=== PATIENT | female | born 1975 | race Native Hawaiian/Other Pacific Islander ===

== ENCOUNTER → 2020-10-17 | Outpatient (CLI) | payer OTHER ==
[2020-10-17 12:48] LABS: Basophils % (A) 1 %; Eosinophils # (A) 0.2 k/uL (0-0.7); Eosinophils % (A) 4 %; HCT 42.6 % (34.0-46.0); Lymphocytes # (A) 1.5 k/uL (1.0-4.8); Lymphocytes % (A) 29 %; MCV 97.2 fL (80.0-100.0); Mean Platelet Volume 6.3; Monocytes # (A) 0.4 k/uL (0-1.0); Monocytes % (A) 7 %; Neutrophils # (A) 3.1 k/uL (1.3-7.7); Neutrophils % (A) 58 %; Platelet Count 363 k/uL (150-450); RBC 4.38 m/uL (3.80-5.40); RDW 13.3 % (11.5-15.5); WBC 5.4 k/uL (3.8-10.6)
[2020-10-17 13:01] LABS: INR 0.9 (<1.2); Prothrombin Time 9.9 sec (9.0-12.0)
[2020-10-17 13:10] LABS: Potassium 4.6 mmol/L (3.5-5.1)
== END | disposition home or self-care (01) ==
LOC: LABPAT 11:53
PROVIDERS: ATTEND Orthopaedic Surgery
DX: Z01.812 Encounter for preprocedural laboratory examination (principal); M16.12 Unilateral primary osteoarthritis, left hip; M87.052 Idiopathic aseptic necrosis of left femur
CPT/HCPCS: 80051; 85025; 85610; 87070; 93005

== ENCOUNTER 2020-10-21 05:48 | Day surgery (SDC) | payer OTHER ==
--- NOTE | 2020-10-20 11:34 | HP ---
HISTORY AND PHYSICAL DATE OF SURGERY: 10/21/2020 HISTORY OF PRESENT ILLNESS: Lisa Kinney is a 45-year-old patient seen with symptomatic left hip osteoarthritis/avascular necrosis. We discussed options for treatment. She elected to proceed with left total hip arthroplasty. Consent was obtained. PAST MEDICAL HISTORY: Anxiety. PAST SURGICAL HISTORY: Noncontributory. MEDICATIONS: Lexapro, loratadine. ALLERGIES: SULFA. SOCIAL HISTORY: She smokes 1 pack of cigarettes daily. PHYSICAL EXAMINATION: Evaluation of the left hip, she has very limited range of motion of the left hip with severe pain. There is diffuse tenderness about the hip girdle with positive hip impingement sign. Straight leg raise negative. Her distal neurovascular exam is intact. RADIOGRAPHS: Left hip radiographs reveal severe osteoarthritis as well as avascular necrosis of the femoral head with complete collapse of the femoral head. IMPRESSION: Left hip osteoarthritis/avascular necrosis. PLAN: Direct anterior left total hip arthroplasty. MMODL / IJN: [id number] /
[~2020-10-21 05:48] MED LIST: ACETAMINOPHEN TAB 500 MG TAB PO PRN; DEXAMETHASONE SOD PHOSPHATE 4 MG/ML 1 ML VIAL IV ONE; LACTATED RINGERS 1,000 ML IV SCH; LIDOCAINE 1% (10MG/ML) FOR IV START INTRADERMA PRN; MELOXICAM 7.5 MG TAB PO PRN; MIDAZOLAM 2 MG/2 ML VIAL IV PRN; ONDANSETRON 4 MG/2 ML VIAL IVP ONE; ROPIVACAINE/EPI/CLONIDINE/KET 50 ML SYRINGE MISCELLANE PRN; TRANEXAMIC ACID 1,000 MG in SODIUM CHLORIDE 0.9% 100 ML IVPB PRN
[2020-10-21] MEDS ORDERED: ACETAMINOPHEN TAB 500 MG TAB ONE (06:02)
[2020-10-21] MEDS ORDERED: ONDANSETRON 4 MG/2 ML VIAL ONE (06:03)
[2020-10-21] MEDS ORDERED: LACTATED RINGERS 1,000 ML IV ONE ×4 (06:27→10:38)
[2020-10-21] MEDS ORDERED: HYDROmorphone (PF) 1 MG/ML ONE (07:27)
[2020-10-21] MEDS ORDERED: SILVER sulfADIAZINE Cream 400 GM 1 APPLIC APPLIC TOPICAL ONE (07:27)
[2020-10-21] MEDS ORDERED: LIDOCAINE 1% INJ 10MG/ML (20 ML MDV) ONE (07:27)
[2020-10-21] MEDS ORDERED: MIDAZOLAM 2 MG/2 ML VIAL ONE (07:27)
[2020-10-21] MEDS ORDERED: fentaNYL (PF) 50 MCG/ML 2 ML AMP ONE (07:27)
[2020-10-21] MEDS ORDERED: SODIUM CHLORIDE 0.9% 100 ML BAG ONE (07:27)
[2020-10-21] MEDS ORDERED: PROPOFOL 10 MG/ML 20 ML VIAL IV ONE (07:27)
[2020-10-21] MEDS ORDERED: PHENYLEPHRINE-0.9% NACL SYG 1,000 MCG/10 ML SYRINGE ONE (07:27)
[2020-10-21] MEDS ORDERED: TRANEXAMIC ACID 1,000 MG/10 ML VIAL ONE (07:27)
[2020-10-21] MEDS ORDERED: ceFAZolin 3,000 MG in SODIUM CHLORIDE 0.9% IRRIGATIO 3,000 ML IRRIGATION ONE (08:07)
[2020-10-21] MEDS ORDERED: NALOXONE 0.4 MG/ML 1 ML VIAL IV PRN (09:20)
[2020-10-21] MEDS ORDERED: HYDROmorphone 0.2 MG/1 ML SYRINGE IVP PRN (09:20)
[2020-10-21] MEDS ORDERED: ONDANSETRON 4 MG/2 ML VIAL IVP PRN (09:20)
[2020-10-21] MEDS ORDERED: HYDROmorphone 1 MG/ML 1 ML SYRINGE IVP PRN (09:20)
[2020-10-21] MEDS ORDERED: HYDROmorphone 0.5 MG/0.5 ML SYRINGE IVP PRN (09:20)
[2020-10-21] MEDS ORDERED: HYDROcodone/APAP 5-325MG 1 EACH TAB PO PRN ×2 (09:20)
--- NOTE | 2020-10-21 09:20 | P.OP ---
Date of Procedure: 10/21/20 Preoperative Diagnosis: Left hip osteoarthritis Postoperative Diagnosis: Left hip osteoarthritis Procedure(s) Performed: Direct anterior left total hip arthroplasty Implants: 1. Depuy Corail KA 125 with collar size 9 press-fit femoral stem 2. Depuy pinnacle 48 mm press-fit acetabular shell 3. Depuy pinnacle neutral polyethylene acetabular liner 32 mm ID 48 mm OD 4. Biolox delta ceramic femoral head +5 32 mm Anesthesia: YONIA, local Surgeon: Bhavik Long B2B Sales Representative #1: Garry Shell Estimated Blood Loss (ml): 250 Pathology: other (Femoral head) Condition: stable Disposition: PACU Indications for Procedure: 45-year-old patient seen with symptomatic left hip avascular necrosis/osteoarthritis. After treatment options were discussed, she elected to proceed with direct anterior left total hip arthroplasty. Operative Findings: See description of procedure Description of Procedure: The patient was taken to the operative suite. Patient underwent a general a nesthetic by the department of anesthesia. Patient was then transferred to the [place] table. Patient was given preoperative IV antibiotics and TXA. Both lower extremities were placed in standard leg spars. The hip was then prepped and draped in the normal sterile orthopedic fashion. A standard anterior incision was made beginning 3 cm lateral and 1 cm distal to the ASIS extending 10 cm. Dissection was then carried down through the subcutaneous soft tissues down to the fascia overlying the tensor fascia ladonna. An incision was now made through the fascia. Careful dissection was taken down exposing the tensor fascia ladonna muscle. A Cobra retractor was now placed along the medial femoral neck and a second one along the lateral femoral neck. The venous circumflex vessels were now identified, cauterized and clipped. We identified the anterior hip capsule. An incision was made through the hip capsule along the lateral border. I performed a partial anterior capsulectomy. Retractors were now placed around the femoral neck itself. A femoral neck cut was now made with a sagittal saw. It was completed with an osteotome at the lateral neck area. The femoral head was now removed without difficulty. The extremity was now rotated to 45 of external rotation. It was locked in position. Residual labrum was now debrided out. Serial reaming was performed of the acetabulum while Francis ABREU assisted holding an anterior retractor for exposure. Once we reached the appropriate size and a trial was position and fit nicely. The appropriate size was now chosen opened and made available. It was introduced into the acetabulum without difficulty. The C-arm/fluoroscopy was now brought into the operative field. We made sure we had a true AP pelvic view. We now under direct C- arm/fluoroscopy introduced into the acetabular component with appropriate version and inclination. I held the cup in appropriate position well Francis ABREU used a mallet to seat the acetabular component. I noted the component now to be well seated and stable. Acetabular cup introduce her was removed. The C-arm was pulled back. An appropriate liner was introduced and clicked into position. It was felt to be stable. At this point retractors were removed. The extremity was now placed into 120 external rotation with no traction. The leg was now dropped to the ground and adducted. Appropriate retractors were now positioned along the proximal femur. We also placed our femoral look into position. Additional capsular releasing was performed to gain access to the proximal femur. We now used a box osteotome. A canal finder was now utilized. Serial broaching was now performed with the assistance of Francis ABREU tapping the broaches down with a mallet while held the broach in appropriate rotation and position. This was done until we reached the appropriate size with good overall rotational stability. Appropriate calcar planing was performed. A trial head/neck was placed into position. The hip was now reduced. The C- arm/fluoroscopy was brought back into the operative field. I obtained an AP pelvis view to ascertain leg length positioning and it seemed reasonable. The trial components appeared adequately positioned. The C-arm/fluoroscopy was pulled back. Retractors were repositioned and the hip was dislocated. The leg was again taken down to the ground and adducted. Appropriate retractors were repositioned as well as the femoral hook. All trial components were removed. The femoral implant was opened along with the femoral head. The femoral implant was introduced on the appropriate handle into our pre-broached area. I held the component position well Francis ABREU used a mallet to seat the femoral component. The femoral component was now noted to be well seated and stable.. The femoral head was introduced with good positioning and fixation noted. Retractors were now removed. The hip was now reduced. There appeared be good positioning of the hip confirmed on intraoperative fluoroscopy. Spot films were obtained to document this. A second gram of TXA was given. The deep and superficial soft tissues were infiltrated with local analgesic. Bipolar cautery had been utilized intermittently through the procedure for hemostasis. The wound was irrigated copiously with pulse lavage mechanical irrigation. The fascia was repaired with Vicryl suture. The subcutaneous soft tissues were repaired in layers with Vicryl suture. The skin was approximated with pernio/Dermabond. Sterile dressings were applied. Patient was then awakened, transferred to a bed and taken to recovery in stable condition. Francis ABREU assisted with the complex procedure.
[2020-10-21 09:58] VITALS: TEMP 97.3
[2020-10-21 10:00] VITALS: RESP 16
[2020-10-21] MEDS ORDERED: KETOROLAC 15 MG/ML 1 ML VIAL IVP ONE (10:15)
[2020-10-21] MEDS: HYDROmorphone 0.5 MG/0.5 ML SYRINGE IVP PRN ×2 (10:25→10:40)
--- NOTE | 2020-10-21 10:27 | XR ---
EXAMINATION TYPE: XR Hip Limited LT, FL guidance operating room DATE OF EXAM: 10/21/2020 COMPARISON: NONE HISTORY: 45-year-old female left anterior hip arthroplasty FINDINGS: 1 intraoperative fluoroscopic images demonstrating left hip total arthroplasty placement. FLUOROSCOPY Fluoroscopy time of 14 seconds was used during left hip total arthroplasty. 1 image/s document/s the procedure. IMPRESSION: Intraoperative fluoroscopy as above.
[2020-10-21] MEDS ORDERED: HYDROcodone/APAP 7.5-325MG 1 EACH TAB ONE (12:47)
[2020-10-21] MEDS ORDERED: HYDROcodone/APAP 7.5-325MG 1 EACH TAB PO ONE (12:49)
[2020-10-21 13:13] VITALS: BP 94/54; PULSE 85
== END 2020-10-21 14:24 | disposition home or self-care (01) ==
LOC: OR 05:48
PROVIDERS: ATTEND Orthopaedic Surgery
DX: M16.12 Unilateral primary osteoarthritis, left hip (principal); M87.852 Other osteonecrosis, left femur; F41.9 Anxiety disorder, unspecified; F17.210 Nicotine dependence, cigarettes, uncomplicated; J30.2 Other seasonal allergic rhinitis; R94.31 Abnormal electrocardiogram [ECG] [EKG]; Z88.2 Allergy status to sulfonamides; Z79.899 Other long term (current) drug therapy
CPT/HCPCS: 27130; 97110; 97161; 81025; 88305; 88311; 73501; C1776; J2250; J1100; J0690 ×2; J2405; J2001; J3010; J1170 ×2; J1885; J2370; J2704; 86850; 86900; 86901

== ENCOUNTER 2020-10-27 19:06 | Inpatient (IN) | payer OTHER ==
[2020-10-27] MEDS ORDERED: NALOXONE 0.4 MG/ML 1 ML VIAL IV PRN (19:14)
[2020-10-27] MEDS ORDERED: ONDANSETRON 4 MG/2 ML VIAL IVP PRN (19:14)
--- NOTE | 2020-10-27 19:17 | ED ---
Lower Extremity Injury HPI - General Chief Complaint: Extremity Injury, Lower Stated Complaint: Dislocated Hip Source: EMS Mode of arrival: EMS Limitations: no limitations - History of Present Illness Initial Comments: Lisa is a pleasant 45-year-old female who underwent left hip arthroplasty with Dr. reid Shipman on Wednesday of this week. Patient states that today she bent over to something up off the ground and her hip dislocated. She was taken to her local hospital which was [facility]. She was sedated with propofol and there was an attempt to reduce her hip which was unsuccessful in the emergency department. They contacted patient's surgeon who recommended transfer to this hospital with the plan for operative reduction. Patient reports her pain has been managed with Toradol. Her only concern is discomfort with using the bedpan. - Related Data Home Medications Medication Instructions Recorded Confirmed Ascorbic Acid [Vitamin C] 1 tab PO DAILY 10/18/20 10/18/20 Calcium Carbonate [Calcium] 1 tab PO DAILY 10/18/20 10/18/20 Cholecalciferol [Vitamin D3 (25 1 tab PO DAILY 10/18/20 10/18/20 Mcg = 1000 Iu)] Escitalopram Oxalate [Lexapro] 10 mg PO QAM 10/18/20 10/18/20 RX: Loratadine 10 mg PO QAM 10/18/20 10/18/20 lamoTRIgine [LaMICtal] 100 mg PO QAM 10/18/20 10/18/20 Previous Rx's Medication Instructions Recorded Docusate [Colace] 100 mg PO DAILY #30 capsule 10/21/20 HYDROcodone/APAP 7.5-325MG [[place] 1 each PO Q6HR PRN #28 tab 10/21/20 7.5] RX: Aspirin [Adult Low Dose 81 mg PO BID #60 tablet. 10/21/20 Aspirin EC] Allergies Allergy/AdvReac Type Severity Reaction Status Date / Time Sulfa (Sulfonamide Allergy Rash/Hives, Verified 10/18/20 08:49 Antibiotics) THROAT SWELLING Review of Systems ROS Statement: Those systems with pertinent positive or pertinent negative responses have been documented in the HPI. ROS Other: All systems not noted in ROS Statement are negative. Past Medical History Additional Past Medical History / Comment(s): AVASCULAR NECROSIS. History of Any Multi-Drug Resistant Organisms: MRSA Date of last positivie culture/infection: JUNE 2005 MDRO Source:: SCALP/BUTTOCKS Past Surgical History: No Surgical Hx Reported Past Anesthesia/Blood Transfusion Reactions: No Reported Reaction Additional Past Anesthesia/Blood Transfusion Reaction / Comment(s): HAS NEVER HAD ANESTHESIA Past Psychological History: Anxiety, Depression Smoking Status: Current every day smoker Past Alcohol Use History: Rare Past Drug Use History: Marijuana - Past Family History Mother Family Medical History: No Reported History General Exam - General Exam Comments Initial Comments: Physical Exam GENERAL: Patient is well-developed and well-nourished. Patient is nontoxic and well-hydrated and is in no distress. HENT: Normocephalic, Atraumatic. EYES: PERRL, EOMI PULMONARY: Unlabored respirations. CARDIOVASCULAR: RRR Warm and well perfused extremities Strong pulse in left foot Refill less than 2 seconds ABDOMEN: Non-distended SKIN: No rashes or bruising : Deferred NEUROLOGIC: Alert and oriented Normal speech Normal gait MUSCULOSKELETAL: Decreased range of motion of the left hip secondary to dislocation PSYCHIATRIC: No SI/HI Limitations: no limitations Course Vital Signs 10/27/20 19:07 Temperature 99.2 F Pulse Rate 81 Respiratory 18 Rate Blood Pressure 115/72 O2 Sat by Pulse 98 Oximetry Medical Decision Making - Medical Decision Making The patient was seen and evaluated history was obtained from transferring physician, patient and medical record Contacted PA for Alec Sauer, who recommended admission, NPO at midnight, plan for reduction in OR tomorrow Disposition Clinical Impression: Dislocation of hip joint prosthesis Disposition: ADMITTED IP TO THIS [facility] Condition: Stable Is patient prescribed a controlled substance at d/c from ED?: No Referrals: Soraya Stephenson MD [Primary Care Provider] - 1-2 days
[2020-10-27] MEDS: MORPHINE SULFATE 4 MG/ML SYRINGE IV PRN (20:10)
[2020-10-27] MEDS: SODIUM CHLORIDE 0.9% 1,000 ML IV SCH (20:10)
[2020-10-28] MEDS: MORPHINE SULFATE 4 MG/ML SYRINGE IV PRN ×2 (02:17→07:06)
--- NOTE | 2020-10-28 06:52 | XR ---
EXAMINATION TYPE: XR Hip Complete LT DATE OF EXAM: 10/27/2020 CLINICAL HISTORY: Left hip pain, suspected dislocation, replacement surgery 6 days ago. TECHNIQUE: AP and frogleg views of the left hip are attempted. COMPARISON: Intraoperative hip x-rays 6 days ago. FINDINGS: There is interval metallic prosthesis dislocation of the femoral head component from metal lic acetabular component. No acute fracture is seen. Femoral head component is superior and lateral i n position. The overlying soft tissue appears unremarkable. IMPRESSION: There is confirmation of acute prosthetic left hip dislocation.
[2020-10-28] MEDS ORDERED: IV FLUID CONTINUATION 1,000 ML IV ONE (08:47)
[2020-10-28] MEDS ORDERED: ONDANSETRON 4 MG/2 ML VIAL IVP ONE (08:53)
[2020-10-28 08:54] LABS: HCT 34.8 % (34.0-46.0); HGB 11.2 gm/dL (11.4-16.0); MCH 31.4 pg (25.0-35.0); MCHC 32.1 g/dL (31.0-37.0); MCV 97.8 fL (80.0-100.0); Mean Platelet Volume 6.4; Platelet Count 359 k/uL (150-450); RBC 3.56 m/uL (3.80-5.40); RDW 13.6 % (11.5-15.5); WBC 5.1 k/uL (3.8-10.6)
[2020-10-28] MEDS ORDERED: DEXAMETHASONE SOD PHOSPHATE 4 MG/ML 1 ML VIAL IVP ONE (08:54)
--- NOTE | 2020-10-28 09:45 | P.HPOR ---
History of Present Illness H&P Date: 10/28/20 Chief Complaint: Left periprosthetic hip dislocation Patient is a 45-year-old female who was transferred to [facility] from [facility] yesterday afternoon. Patient recently underwent a direct anterior left total hip arthroplasty by Dr. Long on 10/21/2020. She will be doing very well since initial surgery. She states that she was doing a little bit more than she probably should've, she was putting her on CHANDRAKANT hose socks on and helping her inlaws around the house. She states that she bent over to put her socks on and felt her hip pop out. She was unable to weight bear after that. She initially was taken to [facility] for further evaluation. A closed reduction attempt was done by the emergency room staff, this was unsuccessful. They then contacted our orthopedic group with regards to further instructions. Patient was then transferred to our hospital for further workup and management. She was admitted to the [facility] floor overnight. She was made nothing by mouth after midnight. Plan was for a closed reduction with possible revision of the left total hip arthroplasty on 10/28/2020. Patient was evaluated at bedside today, she was resting comfortably. She is in good spirits. She's having no significant pain at this time. She notes most discomfort on the left lateral hip region when she attempts to move. She denies any recent trauma, this to include falls. She has no other orthopedic complaints at this time. She does note some numbness on the bottom of the left foot. This is new since surgery. Review of Systems Constitutional: Reports as per HPI Past Medical History Additional Past Medical History / Comment(s): AVASCULAR NECROSIS. History of Any Multi-Drug Resistant Organisms: MRSA Date of last positivie culture/infection: JUNE 2005 MDRO Source:: SCALP/BUTTOCKS Past Surgical History: No Surgical Hx Reported Past Anesthesia/Blood Transfusion Reactions: No Reported Reaction Additional Past Anesthesia/Blood Transfusion Reaction / Comment(s): HAS NEVER H AD ANESTHESIA Past Psychological History: Anxiety, Depression Smoking Status: Current every day smoker Past Alcohol Use History: Rare Additional Past Alcohol Use History / Comment(s): SMOKED FOR OVER 30 YRS, 1PPD Past Drug Use History: Marijuana Additional Drug Use History / Comment(s): SMOKE AND USE OF GUMMIES - Past Family History Mother Family Medical History: No Reported History Medications and Allergies Home Medications Medication Instructions Recorded Confirmed Type Ascorbic Acid [Vitamin C] 500 mg PO DAILY 10/18/20 10/27/20 History Calcium Carbonate [Calcium] 600 mg PO DAILY 10/18/20 10/27/20 History Cholecalciferol [Vitamin D3 (25 25 mcg PO DAILY 10/18/20 10/27/20 History Mcg = 1000 Iu)] Loratadine 10 mg PO DAILY 10/18/20 10/27/20 History lamoTRIgine [LaMICtal] 100 mg PO DAILY 10/18/20 10/27/20 History Aspirin [Adult Low Dose Aspirin EC] 81 mg PO BID #60 tablet.dr 10/21/20 10/27/20 Rx Docusate [Colace] 100 mg PO DAILY #30 capsule 10/21/20 10/27/20 Rx Escitalopram [Lexapro] 30 mg PO DAILY 10/27/20 10/27/20 History Gabapentin 300 mg PO DAILY 10/27/20 10/27/20 History HYDROcodone/APAP 7.5-325MG [[place] 1 tab PO Q6HR PRN 10/27/20 10/27/20 History 7.5] Allergies Allergy/AdvReac Type Severity Reaction Status Date / Time Sulfa (Sulfonamide Allergy Rash/Hives, Verified 10/28/20 08:49 Antibiotics) THROAT SWELLING Physical Examination Left lower extremity: Silver dressing is in place over the left anterior hip incision Minimal soft tissue swelling and ecchymosis present in that area No other open lesions are present throughout the lower extremity There is obvious shortening and external rotation of the left lower extremity her to the contralateral side Range of motion of the hip was not assessed along with the knee She was nontender with palpation surrounding the knee, lower leg, foot or ankle. Minimal tenderness with palpation of the lateral aspect of the proximal femur Calf is soft, no tenderness with palpation Plantar flexion, dorsiflexion, EHL, FHL is intact Her sensory exam to light touch is intact left lower extremity, she notes some numbness on the bottom of the left foot Skin is warm to touch Results - Labs Labs: Abnormal Lab Results - Last 24 Hours (Table) 10/28/20 Range/Units 08:06 RBC 3.56 L (3.80-5.40) m/uL Hgb 11.2 L (11.4-16.0) gm/dL H & H 10/28/20 Range/Units 08:06 Hgb 11.2 L (11.4-16.0) gm/dL Hct 34.8 (34.0-46.0) % Result Diagrams: 10/28/20 08:06 - Diagnostic results Hip x-ray: report reviewed, image reviewed (Images were reviewed along with reports. Images demonstrate dislocation of the left periprosthetic hip joint. The hardware appears stable, with no obvious lucencies. No obvious fractures are present.) Assessment and Plan Assessment: Left hip periprosthetic hip dislocation History of recent left direct anterior total hip arthroplasty Plan: I was able to discuss the case including with physical exam findings and imaging studies my attending Dr. Long. Plan is for a closed reduction of the left hip, with possible revision of the left total hip on 10/28/2020. Was able to discuss the treatment plan with the patient today at bedside, she was made aware Dr. Long would be available in the preoperative area to discuss any further questions regarding the procedure. Patient would like to proceed with current outline treatment plan. Obtain consent Continue nothing by mouth diet at this time Pain control, oral and IV medication as needed Further recommendations to follow after surgery Time with Patient: Less than 30
[2020-10-28] MEDS ORDERED: PHENYLEPHRINE-0.9% NACL SYG 1,000 MCG/10 ML SYRINGE ONE (10:16)
[2020-10-28] MEDS ORDERED: NEOSTIGMINE 1 MG/ML 10 ML VIAL ONE (10:16)
[2020-10-28] MEDS ORDERED: ROCURONIUM 10 MG/ML (5 ML VIAL) IV ONE (10:16)
[2020-10-28] MEDS ORDERED: GLYCOPYRROLATE 0.2 MG/ML 2 ML VIAL ONE (10:16)
[2020-10-28] MEDS ORDERED: PROPOFOL 10 MG/ML 20 ML VIAL IV ONE (10:16)
[2020-10-28] MEDS ORDERED: fentaNYL (PF) 50 MCG/ML 2 ML AMP ONE (10:16)
[2020-10-28] MEDS ORDERED: SUCCINYLCHOLINE CHLORIDE 100 MG/5 ML SYR IV ONE (10:16)
[2020-10-28] MEDS ORDERED: HYDROmorphone (PF) 1 MG/ML ONE (10:16)
[2020-10-28] MEDS ORDERED: TRANEXAMIC ACID 1,000 MG/10 ML VIAL ONE (10:16)
[2020-10-28] MEDS ORDERED: MIDAZOLAM 2 MG/2 ML VIAL ONE (10:16)
[2020-10-28] MEDS ORDERED: SODIUM CHLORIDE 0.9% 100 ML BAG ONE (10:16)
[2020-10-28] MEDS ORDERED: LIDOCAINE 1% INJ 10MG/ML (20 ML MDV) ONE (10:16)
[2020-10-28] MEDS ORDERED: LACTATED RINGERS 1,000 ML IV ONE (10:30)
[2020-10-28] MEDS ORDERED: ROPIVACAINE/EPI/CLONIDINE/KET 50 ML SYRINGE MISCELLANE PRN (10:59)
[2020-10-28] MEDS ORDERED: ceFAZolin 1,000 MG VIAL IVPB ONE (11:00)
[2020-10-28] MEDS ORDERED: ceFAZolin 1,000 MG in SODIUM CHLORIDE 0.9% 1,000 ML IRRIGATION ONE (11:01)
[2020-10-28] MEDS ORDERED: VANCOMYCIN 1,000 MG VIAL MISCELLANE ONE ×2 (11:30→11:38)
--- NOTE | 2020-10-28 12:07 | FL ---
EXAMINATION TYPE: FL guidance operating room, XR Hip Limited LT DATE OF EXAM: 10/28/2020 CLINICAL HISTORY: Left hip prosthesis dislocation, history of surgery one week ago. TECHNIQUE: Fluoroscopy. Limited intraoperative views left hip. COMPARISON: Left hip x-ray from yesterday. FINDINGS: Fluoroscopic guidance was provided during surgical revision procedure performed by Dr. Jonathan lopez. A total of 45 seconds of fluoroscopic time was utilized during the procedure and single spot intraoperative image is acquired. Single image acquired shows successful reduction of prosthetic dislocation on frontal projection. IMPRESSION: As Above.
[2020-10-28] MEDS ORDERED: HYDROcodone/APAP 5-325MG 1 EACH TAB PO PRN ×2 (12:24)
[2020-10-28] MEDS ORDERED: HYDROmorphone 0.5 MG/0.5 ML SYRINGE IVP PRN (12:24)
[2020-10-28] MEDS ORDERED: ONDANSETRON 4 MG/2 ML VIAL IVP PRN (12:24)
[2020-10-28] MEDS ORDERED: NALOXONE 0.4 MG/ML 1 ML VIAL IV PRN (12:24)
[2020-10-28] MEDS ORDERED: HYDROmorphone 0.2 MG/1 ML SYRINGE IVP PRN (12:24)
[2020-10-28] MEDS ORDERED: HYDROmorphone 1 MG/ML 1 ML SYRINGE IVP PRN (12:24)
--- NOTE | 2020-10-28 12:24 | P.OP ---
Date of Procedure: 10/28/20 Preoperative Diagnosis: Unreducible dislocation left total hip arthroplasty Postoperative Diagnosis: Loosened femoral component left total hip arthroplasty Procedure(s) Performed: Revision left total hip arthroplasty(revised femoral component, head and ibeth yethylene acetabular liner) Implants: 1. [place] Corail KA 125 with collar size 10 press-fit femoral stem 2. [place] pinnacle polyethylene acetabular liner 10 48 mm OD 32 mm ID 3. Biolox delta ceramic femoral head 32 mm +5 Anesthesia: YONIA, local Surgeon: Bhavik Long Tobacco Blender #1: Alec Rodriguez Estimated Blood Loss (ml): 75 Pathology: none sent Condition: stable Disposition: PACU Indications for Procedure: 45-year-old patient was seen with history of previous total hip arthroplasty. She sustained a dislocation. She was taken to a different facility where attem pts to reduce the hip were unsuccessful. She was subsequently transferred to our facility. She was taken to the operative suite and under general anesthetic utilizing fluoroscopy and was unable to reduce it. We therefore proceeded to an open exploration with reduction and possible revision if indicated. Consents were obtained regarding all possible options. Operative Findings: See description of procedure Description of Procedure: The patient was taken to the operative suite. The patient underwent a general anesthetic by the department of anesthesia. She was transferred to the [place] table. Under fluoroscopy I was unable to reduce the hip. I decided this point to proceed with an open exploration. The patient received preoperative IV antibiotics. The left hip was prepped and draped in a normal sterile orthopedic fashion. She did receive TXA. I made incisions through previous cicatrix. I dissected down to the fascia. I removed all sutures from the fascia. An I evaluated the hip components. The femoral component appeared in excess anteversion. I did go ahead and reduced the hip. I again noted excess anteversion of the femoral stem. Upon exploration it appeared that the femoral stem had rotated and now appeared to be loosened. I dislocated the hip. I removed the femoral head and femoral stem without difficulty. I introduced a guidewire and reamed up to a 10.5. I now introduced a size 10 broach with appropriate version. I decided to swap out the polyethylene [place] her liner for a 10 for added stability. I placed the new 10 acetabular liner with the 10 lip anterior laterally. I now placed a size 5 mm/32 mm trial head and reduced the hip. The components appear well positioned at this point. C-arm was brought in confirming reasonable length with alignment as well as good position of the trial femoral components. The C-arm was pulled back. The hip was again dislocated. The femoral trial components were now removed. The wound was irrigated copiously with pulse lavage mechanical irrigation. The soft tissues were infiltrated local analgesic. I now introduced our size 04/11/2025 degree with collar femoral component tapped into position with appropriate version. I now tapped down her appropriate head. The hip was reduced. The C-arm was brought in again confirming adequate position of permanently components. The C- arm was pulled back. A second gram of TXA was given. He was irrigated. The fascia was repaired with #1 Vicryl. The subcu soft tissues were repaired with 0 Vicryl along with a subcuticular running suture for the skin with skin glue. Sterile dressings were applied. The patient was awakened having entire procedure well. Alec ABREU assisted with the procedure.
[2020-10-28] MEDS: HYDROmorphone 1 MG/ML 1 ML SYRINGE IVP ONE ×2 (12:37→12:44)
[2020-10-28] MEDS: TRANEXAMIC ACID 1,000 MG in SODIUM CHLORIDE 0.9% 100 ML IVPB SCH ×2 (12:58→15:23)
--- NOTE | 2020-10-28 14:10 | P.CONS ---
History of Present Illness - Reason for Consult Consult date: 10/28/20 Medical management - History of Present Illness This is a 45-year-old female who was transferred to our facility from [facility]. Patient recently underwent direct anterior left total hip arthroplasty by Dr. Long on 10/21/2020. She felt that her left hip popped out and loss is being admitted to the hospital. She underwent surgical revision today. At the time of examination patient feels fine, she denies chest pain, no abdominal pain, no nausea or vomiting. She denies dizziness or loss of consciousness. She denies hematuria dysuria hematemesis or hematochezia. Review of Systems 10 systems reviewed, pertinent positive and negative findings as in HPI. No chest pain no abdominal pain. Past Medical History Additional Past Medical History / Comment(s): AVASCULAR NECROSIS. History of Any Multi-Drug Resistant Organisms: MRSA Year Discovered:: JUNE 2005 MDRO Source:: SCALP/BUTTOCKS Past Surgical History: No Surgical Hx Reported Past Anesthesia/Blood Transfusion Reactions: No Reported Reaction Additional Past Anesthesia/Blood Transfusion Reaction / Comm: HAS NEVER HAD ANESTHESIA Past Psychological History: Anxiety, Depression Smoking Status: Current every day smoker Past Alcohol Use History: Rare Additional Past Alcohol Use History / Comment(s): SMOKED FOR OVER 30 YRS, 1PPD Past Drug Use History: Marijuana Additional Drug Use History / Comment(s): SMOKE AND USE OF GUMMIES - Past Family History Mother Family Medical History: No Reported History Medications and Allergies Home Medications Medication Instructions Recorded Confirmed Type Ascorbic Acid [Vitamin C] 500 mg PO DAILY 10/18/20 10/27/20 History Calcium Carbonate [Calcium] 600 mg PO DAILY 10/18/20 10/27/20 History Cholecalciferol [Vitamin D3 (25 25 mcg PO DAILY 10/18/20 10/27/20 History Mcg = 1000 Iu)] Loratadine 10 mg PO DAILY 10/18/20 10/27/20 History lamoTRIgine [LaMICtal] 100 mg PO DAILY 10/18/20 10/27/20 History Aspirin [Adult Low Dose Aspirin EC] 81 mg PO BID #60 tablet. 10/21/20 10/27/20 Rx Docusate [Colace] 100 mg PO DAILY #30 capsule 10/21/20 10/27/20 Rx Escitalopram [Lexapro] 30 mg PO DAILY 10/27/20 10/27/20 History Gabapentin 300 mg PO DAILY 10/27/20 10/27/20 History HYDROcodone/APAP 7.5-325MG [[place] 1 tab PO Q6HR PRN 10/27/20 10/27/20 History 7.5] Allergies Allergy/AdvReac Type Severity Reaction Status Date / Time Sulfa (Sulfonamide Allergy Rash/Hives, Verified 10/28/20 08:49 Antibiotics) THROAT SWELLING Physical Exam Vitals: Vital Signs Temp Pulse Pulse Pulse Resp BP BP 10/28/20 13:00 90 16 115/56 10/28/20 12:46 89 16 114/59 10/28/20 12:32 43 L 16 113/60 10/28/20 12:16 97.6 F 85 14 115/68 10/28/20 08:36 98.6 F 72 110/55 10/28/20 04:35 98.5 F 71 18 104/67 10/27/20 22:20 98.5 F 68 18 109/66 10/27/20 19:07 99.2 F 81 18 115/72 Pulse Ox 10/28/20 13:00 96 10/28/20 12:46 100 10/28/20 12:32 100 10/28/20 12:16 100 10/28/20 08:36 98 10/28/20 04:35 100 10/27/20 22:20 98 10/27/20 19:07 98 Intake and Output 10/27/20 10/28/20 10/28/20 22:59 06:59 14:59 Intake Total 640 1311 Output Total 75 Balance 640 1236 Intake: IV 1311 Intake, IV Titration 400 Amount Sodium Chloride 0.9% 1, 400 000 ml @ 100 mls/hr IV . Q10H [facility] Rx#:[id number] Oral 240 Output: Estimated Blood Loss 75 Other: Voiding Method Bedpan # Voids 2 Weight 47.627 kg Results CBC & Chem 7: 10/28/20 08:06 Labs: Abnormal Lab Results - Last 24 Hours (Table) 10/28/20 Range/Units 08:06 RBC 3.56 L (3.80-5.40) m/uL Hgb 11.2 L (11.4-16.0) gm/dL Assessment and Plan Plan: 1. Left hip pain with Unreducible dislocation left total hip arthroplasty: Status post revision, pain control as indicated. 2. Depression: Continue Lexapro Thank you for the consultations
[2020-10-28] MEDS: SODIUM CHLORIDE 0.9% 1,000 ML IV SCH ×2 (15:22→15:24)
[2020-10-28] MEDS ORDERED: SENNOSIDES-DOCUSATE SODIUM 1 EACH TAB PO SCH (21:00)
[2020-10-29 01:19] VITALS: RESP 18
[2020-10-29] MEDS: SODIUM CHLORIDE 0.9% 1,000 ML IV SCH (02:21)
[2020-10-29 06:02] VITALS: BP 97/62; PULSE 63; TEMP 98.7
[2020-10-29 06:56] LABS: Basophils % (A) 0 %; Eosinophils # (A) 0.2 k/uL (0-0.7); Eosinophils % (A) 3 %; HCT 27.6 % (34.0-46.0); Lymphocytes % (A) 30 %; MCH 32.4 pg (25.0-35.0); MCHC 33.7 g/dL (31.0-37.0); MCV 96.1 fL (80.0-100.0); Mean Platelet Volume 6.4; Monocytes # (A) 0.4 k/uL (0-1.0); Monocytes % (A) 7 %; Neutrophils # (A) 3.9 k/uL (1.3-7.7); Neutrophils % (A) 59 %; Platelet Count 350 k/uL (150-450); RBC 2.87 m/uL (3.80-5.40); WBC 6.6 k/uL (3.8-10.6)
[2020-10-29 07:14] LABS: HGB 9.3 gm/dL (11.4-16.0)
--- NOTE | 2020-10-29 07:39 | P.PN ---
Subjective Progress Note Date: 10/29/20 Principal diagnosis: Status post revision left total hip arthroplasty Patient was examined today at bedside, she is resting comfortably in bed. She has no acute complaints at this time. She's feeling very well. She's ambulated with no difficulties. She denies any headaches, lightheadedness, chest pain, shortness of breath, fever or chills. Objective - Vital Signs Vital signs: Vital Signs Temp 98.7 F 10/29/20 05:00 Pulse 63 10/29/20 05:00 Resp 18 10/29/20 05:00 BP 97/62 10/29/20 05:00 Pulse Ox 100 10/29/20 05:00 Intake & Output 10/28/20 10/29/20 10/29/20 18:59 06:59 18:59 Intake Total 2561 100 Output Total 75 Balance 2486 100 Intake: IV 1311 Intake, IV Titration 50 Amount ceFAZolin 2 gm In Sodium 50 Chloride 0.9% 50 ml @ 100 mls/hr IVPB Q8HR [facility] Rx# :[id number] Oral 1200 100 Output: Estimated Blood Loss 75 Other: Voiding Method Bedpan Bedpan # Voids 3 1 - Exam Left lower extremity: Incision is clean, dry, and intact. The foam dressing is in good condition. There is minimal soft tissue swelling and ecchymosis surrounding the medial and lateral aspects of the incision. Calf is soft, no tenderness with palpation. Plantar flexion, dorsiflexion, EHL, FHL are intact. Sensory exam to light touch throughout the extremity is intact, dorsal pedis pulses 2+. - Labs CBC & Chem 7: 10/29/20 05:22 Labs: Abnormal Lab Results - Last 24 Hours (Table) 10/28/20 10/29/20 Range/Units 08:06 05:22 RBC 3.56 L 2.87 L (3.80-5.40) m/uL Hgb 11.2 L 9.3 L D (11.4-16.0) gm/dL Hct 27.6 L (34.0-46.0) % Assessment and Plan Assessment: Left hip periprosthetic hip dislocation Status post revision left total hip arthroplasty Plan: Pain control, patient has pain medication at home from her previous discharge DVT prophylaxis, aspirin 81 mg twice a day for 1 month Wound care instructions were discussed Activity level restrictions were discussed along with total hip precautions Medical recommendations Plan for follow-up in the outpatient setting in 2 weeks for recheck Time with Patient: Less than 30
--- NOTE | 2020-10-29 07:41 | P.DS ---
Providers Date of admission: 10/27/20 19:16 Expected date of discharge: 10/29/20 Attending physician: Bhavik Long Consults: 10/28/20 12:24 Consult Physician Routine Consulting Provider: Radha Jimenez Consult Reason/Comments: Medical management Do you want consulting provider notified?: Yes Primary care physician: [facility] Hospital Course: Date of admission: 10/27/2020 Date of discharge: 10/29/2020 Admission diagnosis: Left hip periprosthetic dislocation Discharge diagnosis: Status post revision left total hip arthroplasty Attending physician: Dr. Long Surgical procedures: Revision left total hip arthroplasty Brief history: Patient is a 45-year-old female who had recently undergone a direct anterior left total hip arthroplasty by Dr. Long on 10/21/2020. Patient had a dislocation of her left hip on 10/27/2020. She was initially evaluated at [facility], attempt was made at relocation by the ER staff, this was unattainable. Patient was then transferred to [facility] for further evaluation and treatment. Patient was scheduled for a attempt at closed reduction under anesthesia with use of C-arm in the oper ating room with possible revision 10/28/2020. Patient underwent revision of the left total hip arthroplasty on 10/28/2020. Hospital course: Details of patient's surgery can be found in operative report. Patient tolerated the procedure well and was subsequently transported to orthopedic floor. Patient's orthopeidc and medical care was provided daily. Patient had daily laboratory tests performed for evaluation of overall blood counts. Patient had daily physical therapy to include strengthening range of motion as well as education with walker ambulation. Patient was treated with Lovenox for their postoperative DVT prophylaxis during their inpatient stay. Patient was noted to have a relatively uneventful postoperative course. Patient reported satisfactory pain control with oral pain medications by postoperative day 0. Patient showed satisfactory progress with physical therapy. Patient moved steadily through the program and had no difficulty meeting the goals by postoperative day 1. Given patient's otherwise satisfactory course and having met physical therapy goals, plan is to discharge patient home on postoperative day 1. Discharge condition/disposition: Patient will be discharged home in stable condition. Discharge medications: Instructions are given on resumption of patient's normal daily medications per primary care recommendation, in addition patient will be prescribed no new medication. Discharge instructions: 1. Wound care and infection precautions, keep incision dry and covered while showering, no lotions, creams, moisturizers. No soaking, tubs, pools, hottubs. Do not scrub over the incision. 2. Weight-bear as tolerated with walker / cane until follow-up. 3. Ice and elevate when necessary. Do not exceed 20 minutes per hour with ice pack. 4. Utilize compression sleeve until seen at first follow up appointment. 5. Visiting nursing care. 6. Home physical therapy. 7. Pain meds and anticoagulants per prescription. 8. Pain medication has potential to cause constipation. Increase oral fluid and fiber intake. Contact primary care provider if you have not had a bowel movement within 48 hours after discharge 9. No anti-inflammatory medication until discussed at first post operative visit, this including Motrin, Aleve, Mobic, Diclofenac. 10. Follow up in office at 2 weeks postop with Francis Shell PA-C/Alec Romero 11. Follow up with your primary care doctor 7-10 days after discharge. 12. Contact [facility] with any questions, . Procedures: Revision left total hip arthroplasty Patient Condition at Discharge: Stable Plan - Discharge Summary New Discharge Prescriptions: No Action Cholecalciferol [Vitamin D3 (25 Mcg = 1000 Iu)] 25 mcg PO DAILY Calcium Carbonate [Calcium] 600 mg PO DAILY Ascorbic Acid [Vitamin C] 500 mg PO DAILY Aspirin [Adult Low Dose Aspirin EC] 81 mg PO BID #60 tablet. Docusate [Colace] 100 mg PO DAILY #30 capsule lamoTRIgine [LaMICtal] 100 mg PO DAILY Loratadine 10 mg PO DAILY Escitalopram [Lexapro] 30 mg PO DAILY HYDROcodone/APAP 7.5-325MG [[place] 7.5] 1 tab PO Q6HR PRN PRN Reason: Pain Gabapentin 300 mg PO DAILY Discharge Medication List Ascorbic Acid [Vitamin C] 500 mg PO DAILY 10/18/20 [History] Calcium Carbonate [Calcium] 600 mg PO DAILY 10/18/20 [History] Cholecalciferol [Vitamin D3 (25 Mcg = 1000 Iu)] 25 mcg PO DAILY 10/18/20 [History] Loratadine 10 mg PO DAILY 10/18/20 [History] lamoTRIgine [LaMICtal] 100 mg PO DAILY 10/18/20 [History] Aspirin [Adult Low Dose Aspirin EC] 81 mg PO BID #60 tablet. 10/21/20 [Rx] Docusate [Colace] 100 mg PO DAILY #30 capsule 10/21/20 [Rx] Escitalopram [Lexapro] 30 mg PO DAILY 10/27/20 [History] Gabapentin 300 mg PO DAILY 10/27/20 [History] HYDROcodone/APAP 7.5-325MG [[place] 7.5] 1 tab PO Q6HR PRN 10/27/20 [History] Follow up Appointment(s)/Referral(s): Garry Shell PAC [PHYSICIAN PHOTO TECH] - 2 Weeks Soraya Stephenson MD [Primary Care Provider] - 1-2 days Activity/Diet/Wound Care/Special Instructions: Orthopedic Discharge Instructions: 1. Wound care and infection precautions, keep incision dry and covered while showering, no lotions, creams, moisturizers. No soaking, pools, hot tubs. Do not scrub over incision. 2. Weight-bear as tolerated with walker / cane until follow-up. 3. Ice and elevate when necessary. Do not exceed 20 minutes per hour with ice pack. 4. Utilize compression sleeve until seen at first follow up appointment. 5. Pain meds and anticoagulants per prescription. 6. Pain medication has potential to cause constipation. Increase oral fluid and fiber intake. Contact primary care provider if you have not had a bowel movement within 48 hours after discharge. 7. No anti-inflammatory medication until discussed at first post operative visit, this including Motrin, Aleve, Mobic, Diclofenac 8. Follow up in office at 2 weeks postop with Francis Shell PA-C/Alec Rodriguez PA-C 9. Follow up with your primary care doctor 7-10 days after discharge. 10. Contact [facility] with any questions, . Wound care instructions: 1. Okay to remove foam dressing on 11/06/2020 2. After removal of dressing, okay to shower directly over incision 3. Keep incision covered and dry until removal from dressing Discharge Disposition: HOME WITH HOME HEALTH SERVICES
[2020-10-29] MEDS ORDERED: ESCITALOPRAM 10 MG TAB PO SCH (09:00)
[2020-10-29] MEDS ORDERED: lamoTRIgine 100 MG TAB PO SCH (09:00)
[2020-10-29] MEDS ORDERED: GABAPENTIN 300 MG CAP PO SCH (09:00)
[2020-10-29] MEDS ORDERED: MELOXICAM 7.5 MG TAB PO SCH (09:00)
[2020-10-29] MEDS ORDERED: ENOXAPARIN 40 MG/0.4 ML SYRINGE SQ SCH (09:00)
--- NOTE | 2020-10-29 11:26 | P.PN ---
Subjective Progress Note Date: 10/29/20 Feels okay, no chest pain no abdominal pain no nausea no vomiting no dizziness no shortness of breath. Objective - Vital Signs Vital signs: Vital Signs Temp 98.7 F 10/29/20 05:00 Pulse 63 10/29/20 05:00 Resp 18 10/29/20 05:00 BP 97/62 10/29/20 05:00 Pulse Ox 100 10/29/20 05:00 Intake & Output 10/28/20 10/29/20 10/29/20 18:59 06:59 18:59 Intake Total 2561 100 Output Total 75 Balance 2486 100 Intake: IV 1311 Intake, IV Titration 50 Amount ceFAZolin 2 gm In Sodium 50 Chloride 0.9% 50 ml @ 100 mls/hr IVPB Q8HR [facility] Rx# :[id number] Oral 1200 100 Output: Estimated Blood Loss 75 Other: Voiding Method Bedpan Bedpan Bedpan # Voids 3 1 - Exam Physical exam: Constitutional: No acute distress Eyes: Anicteric sclerae ENMT: NC/AT,Oropharynx clear Neck:Supple, FROM, no masses, or JVD Lungs: Clear to auscultation, Clear to percussion Cardiovascular: Heart regular in rate and rhythm, No murmurs, gallops, or rubs no peripheral edema Abdominal: Soft Nontender, nom distended, no guarding, no rebound or rigidity, Normoactive bowel sounds Skin: Normal temperature, tone, texture, turgor, No induration No subcutaneous nodules, No rash, lesions, No ulcers Extremities: no cce Psychiatric: Alert and oriented to person, place and time, Appropriate affect Intact judgement Neuro: Muscles Strength 5/5 in all 4 extremities, Cranial nerves II-XII grossly intact. - Labs CBC & Chem 7: 10/29/20 05:22 Labs: Abnormal Lab Results - Last 24 Hours (Table) 10/29/20 Range/Units 05:22 RBC 2.87 L (3.80-5.40) m/uL Hgb 9.3 L D (11.4-16.0) gm/dL Hct 27.6 L (34.0-46.0) % Assessment and Plan Plan: 1. Left hip pain with Unreducible dislocation left total hip arthroplasty: Status post revision, postop day 1 pain control as indicated. 2. Depression: Continue Lexapro 3. Tobacco use/dependence without evidence of withdrawal: Nicotine patch as indicated
== END 2020-10-29 10:05 | disposition home health service (06) | DRG 470 ==
LOC: EC 19:06 → 5NMEDONC 19:16
PROVIDERS: ADMIT Orthopaedic Surgery; ATTEND Orthopaedic Surgery
PROC: 0SRB04Z Replacement of Left Hip Joint with Ceramic on Polyethylene Synthetic Substitute, Open Approach (ICD-10-PCS; principal; 2020-10-28 07:30)
DX: T84.021A Dislocation of internal left hip prosthesis, initial encounter (principal); X50.1XXA Overexertion from prolonged static or awkward postures, initial encounter; Z88.2 Allergy status to sulfonamides; F17.200 Nicotine dependence, unspecified, uncomplicated; F41.9 Anxiety disorder, unspecified; F32.9 Major depressive disorder, single episode, unspecified; Z79.82 Long term (current) use of aspirin; Z86.14 Personal history of Methicillin resistant Staphylococcus aureus infection; Z79.899 Other long term (current) drug therapy; Z20.822 Contact with and (suspected) exposure to COVID-19
CPT/HCPCS: 73501; 73502; 81025; 85025; 85027; 87635; 96374; 96375; 99284

== ENCOUNTER 2020-11-17 16:29 | Emergency (ER) | payer OTHER ==
[2020-11-17 16:37] VITALS: TEMP 99
--- NOTE | 2020-11-17 17:08 | XR ---
Left hip. HISTORY: Pain. COMPARISON: 10/27/2020 TECHNIQUE: 2 views left hip were obtained. FINDINGS: There is a left hip prosthesis. There is complete dislocation of the left hepatic femoral head from the acetabular component superior ly. There is a mildly displaced fracture of the proximal left femur. The left hemipelvis is intact. IMPRESSION: Prosthetic left hip with complete superior dislocation and mildly displaced fracture the proximal lef t femur
[2020-11-17] MEDS ORDERED: HYDROmorphone 0.5 MG/0.5 ML SYRINGE IVP STA (17:19)
[2020-11-17] MEDS ORDERED: NALOXONE 0.4 MG/ML 1 ML VIAL IV PRN (17:34)
--- NOTE | 2020-11-17 17:35 | ED ---
Extremity Problem HPI - General Chief complaint: Extremity Problem,Nontraumatic Stated complaint: Hip injury Time Seen by Provider: 11/17/20 16:45 Source: patient, EMS Mode of arrival: EMS Limitations: no limitations - History of Present Illness Initial comments: 45-year-old female presenting to the ER today for chief complaint of left hip pain and possible dislocation. Patient states that she had a left total hip arthroplasty secondary to avascular necrosis performed on 10/21/[address] Claire. Pt states that she dislocated her prosthetic and had a revision performed 10/28/20 by her surgeon. Pt states that at her f/u it was noted that she had a peroprostetic fracture and she would need another revision/possible plate. Pt states this was 11/15/20. pt states today she went to sit down and she felt a pop/pain in her hip. concerned it was dislocated again. pt denies falls/direct trauma or additional complaints, injuries. pt brought by EMS given fentanyl prior to arrival, 100mcg. - Related Data Home Medications Medication Instructions Recorded Confirmed Ascorbic Acid [Vitamin C] 500 mg PO DAILY 10/18/20 11/17/20 Calcium Carbonate [Calcium] 600 mg PO DAILY 10/18/20 11/17/20 Cholecalciferol [Vitamin D3 (25 25 mcg PO DAILY 10/18/20 11/17/20 Mcg = 1000 Iu)] Loratadine 10 mg PO DAILY 10/18/20 11/17/20 lamoTRIgine [LaMICtal] 100 mg PO DAILY 10/18/20 11/17/20 Escitalopram [Lexapro] 30 mg PO DAILY 10/27/20 11/17/20 Previous Rx's Medication Instructions Recorded Aspirin [Adult Low Dose Aspirin EC] 81 mg PO BID #60 tablet. 10/21/20 Allergies Allergy/AdvReac Type Severity Reaction Status Date / Time Sulfa (Sulfonamide Allergy Rash/Hives, Verified 11/17/20 17:07 Antibiotics) THROAT SWELLING Review of Systems ROS Statement: Those systems with pertinent positive or pertinent negative responses have been documented in the HPI. ROS Other: All systems not noted in ROS Statement are negative. Past Medical History Additional Past Medical History / Comment(s): AVASCULAR NECROSIS. History of Any Multi-Drug Resistant Organisms: MRSA Date of last positivie culture/infection: JUNE 2005 MDRO Source:: SCALP/BUTTOCKS Past Surgical History: Joint Replacement Additional Past Surgical History / Comment(s): Left hip replacement on October Past Anesthesia/Blood Transfusion Reactions: No Reported Reaction Additional Past Anesthesia/Blood Transfusion Reaction / Comment(s): HAS NEVER HAD ANESTHESIA Past Psychological History: Anxiety, Depression Smoking Status: Former smoker Past Alcohol Use History: None Reported Past Drug Use History: Marijuana - Past Family History Mother Family Medical History: No Reported History General Exam - General Exam Comments Initial Comments: General: The patient is awake and alert, in no distress Eye: +3 mm pupils are equal, round and reactive to light, extra-ocular movements are intact. No nystagmus. There is normal conjunctiva bilaterally. No signs of icterus. Cardiovascular: There is a regular rate and rhythm. No murmur, rub or gallop is appreciated. Respiratory: Lungs are clear to auscultation, respirations are non-labored, breath sounds are equal. No wheezes, stridor, rales, or rhonchi. Musculoskeletal: Shortneing and rotation of the left leg, unable to move at left hip. Normal ROM, at ankle/foot. Strength 5/5. Sensation intact. Radial and posterior tibial, DP pulses equal bilaterally 2+. Neurological: A&O x 3. CN II-XII intact grossly, There are no obvious motor or sensory deficits. Coordination appears grossly intact. Speech is normal. Skin: Skin is warm and dry and no rashes or lesions are noted. Psychiatric: Cooperative, appropriate mood & affect, normal judgment. Limitations: no limitations Course Vital Signs 11/17/20 11/17/20 16:31 17:37 Temperature 99 F Pulse Rate 88 Respiratory 16 18 Rate Blood Pressure 129/92 O2 Sat by Pulse 100 Oximetry Medical Decision Making - Medical Decision Making Spoke with Alec Benavides, he spoke with surgeons partner who states that he is no in office x next week and his partner is not comfortable with the revision. recommended transfer to [facility]. Dr Zelaya accepted that transfer. ER to ER. Not a trauma. Pt agreeable to transfer. Pt films/surgical noted transferred to [facility]. Accepting orthopedic physician stated secondary to fracture cannot be reduced in the ER. - Lab Data Result diagrams: 11/17/20 17:49 Lab Results 11/17/20 Range/Units 17:49 Sodium 137 (137-145) mmol/L Potassium 3.9 (3.5-5.1) mmol/L Chloride 101 (98-107) mmol/L Carbon Dioxide 25 (22-30) mmol/L Anion Gap 11 mmol/L BUN 15 (7-17) mg/dL Creatinine 0.57 (0.52-1.04) mg/dL Est GFR (CKD-EPI)AfAm >90 (>60 ml/min/1.73 sqM) Est GFR (CKD-EPI)NonAf >90 (>60 ml/min/1.73 sqM) Glucose 108 H (74-99) mg/dL Calcium 9.6 (8.4-10.2) mg/dL Total Bilirubin 0.3 (0.2-1.3) mg/dL AST 28 (14-36) U/L ALT 21 (4-34) U/L Alkaline Phosphatase 94 (38-126) U/L Total Protein 7.2 (6.3-8.2) g/dL Albumin 4.3 (3.5-5.0) g/dL Disposition Clinical Impression: Hip dislocation, left, Left femoral shaft fracture, Patricia-prosthetic femoral shaft fracture Disposition: OTHER INSTITUTION NOT DEFINED Condition: Stable Is patient prescribed a controlled substance at d/c from ED?: No Referrals: Soraya Stephenson MD [Primary Care Provider] - 1-2 days Time of Disposition: 18:25 - Out of Hospital Transfer - Req. Specs Out of Hospital Transfer - Requested Specifics: Other Emergency Center ([facility])
[2020-11-17 17:54] VITALS: RESP 18
[2020-11-17 18:15] LABS: ALT 21 U/L (4-34); AST 28 U/L (14-36); African American GFR (CKD) >90 (>60 ml/min/1.73 sqM); Albumin 4.3 g/dL (3.5-5.0); Alkaline Phosphatase 94 U/L (38-126); Anion Gap 11 mmol/L; Blood Urea Nitrogen 15 mg/dL (7-17); Calcium 9.6 mg/dL (8.4-10.2); Carbon Dioxide 25 mmol/L (22-30); Chloride 101 mmol/L (98-107); Glucose 108 mg/dL (74-99); INR 0.9 (<1.2); Non-African American GFR(CKD) >90 (>60 ml/min/1.73 sqM); Potassium 3.9 mmol/L (3.5-5.1); Prothrombin Time 9.8 sec (9.0-12.0); Sodium 137 mmol/L (137-145); Total Bilirubin 0.3 mg/dL (0.2-1.3); Total Protein 7.2 g/dL (6.3-8.2)
[2020-11-17 18:23] LABS: Partial Thromboplastin Time 20.9 sec (22.0-30.0)
[2020-11-17 18:32] LABS: Basophils % (A) 0 %; Eosinophils # (A) 0.4 k/uL (0-0.7); Eosinophils % (A) 4 %; HCT 33.9 % (34.0-46.0); HGB 11.8 gm/dL (11.4-16.0); Lymphocytes # (A) 0.9 k/uL (1.0-4.8); Lymphocytes % (A) 10 %; MCH 32.5 pg (25.0-35.0); MCHC 34.7 g/dL (31.0-37.0); MCV 93.6 fL (80.0-100.0); Mean Platelet Volume 7.2; Monocytes # (A) 0.5 k/uL (0-1.0); Monocytes % (A) 6 %; Neutrophils # (A) 7.4 k/uL (1.3-7.7); Neutrophils % (A) 79 %; Platelet Count 353 k/uL (150-450); RBC 3.62 m/uL (3.80-5.40); RDW 13.1 % (11.5-15.5); WBC 9.4 k/uL (3.8-10.6)
[2020-11-17] MEDS ORDERED: HYDROmorphone 1 MG/ML 1 ML SYRINGE IVP STA (19:21)
[2020-11-17 20:18] VITALS: BP 111/75; PULSE 89
== END 2020-11-17 20:30 | disposition other institution (70) ==
LOC: EC 16:29
DX: S72.302A Unspecified fracture of shaft of left femur, initial encounter for closed fracture (principal); T84.021A Dislocation of internal left hip prosthesis, initial encounter; M97.8XXA Periprosthetic fracture around other internal prosthetic joint, initial encounter; F41.9 Anxiety disorder, unspecified; F32.9 Major depressive disorder, single episode, unspecified; F12.90 Cannabis use, unspecified, uncomplicated; Z20.822 Contact with and (suspected) exposure to COVID-19; Z87.891 Personal history of nicotine dependence; Z79.82 Long term (current) use of aspirin; Z96.642 Presence of left artificial hip joint; X58.XXXA Exposure to other specified factors, initial encounter
CPT/HCPCS: 36415; 80053; 85025; 85610; 85730; 87635; 73502; 99285; 96374; 96376; J1170 ×2

== ENCOUNTER → 2024-11-20 | Outpatient (CLI) | payer BC ==
--- NOTE | 2024-11-20 14:42 | MM ---
Reason for Exam: Screening (asymptomatic). Last mammogram was performed 6 year(s) and 5 month(s) ago. Risk Values: Rosanna 5 year model risk: 1.1%. NCI Lifetime model risk: 9.7%. Tissue Density: The breasts are heterogeneously dense, which may obscure small masses. Findings: Analyzed By CAD. Skin lesion right breast redemonstrated. There is no suspicious group of microcalcifications or new suspicious mass in either breast. Overall Assessment: Negative, BI-RAD 1 Management: Screening Mammogram of both breasts in 1 year. Some advise annual bilateral breast ultrasound surveillance in patients with background dense tissue. Patient should continue monthly self-breast exams. A clinical breast exam by your physician is recommended on an annual basis. This exam should not preclude additional follow-up of suspicious palpable abnormalities. Note on Rosanna scores and lifetime risk: 1. A Rosanna score greater than 3% is considered moderate risk. If this is the case, consider specialist referral to assess eligibility for a risk reducing agent. 2. If overall lifetime risk for the development of breast cancer is 20% or higher, the patient may qualify for future screening with alternating mammogram and breast MRI. [facility], , 11/20/2024 2:39 PM. Electronically signed and approved by: Byron Shelby M.D.
== END | disposition home or self-care (01) ==
LOC: RADMAMWWP 14:13
PROVIDERS: ATTEND Internal Medicine
DX: Z12.31 Encounter for screening mammogram for malignant neoplasm of breast (principal); R92.333 Mammographic heterogeneous density, bilateral breasts
CPT/HCPCS: 77067